=== PATIENT | male | born 1940 | race Caucasian/White ===

== ENCOUNTER → 2018-07-23 | Outpatient (CLI) | payer MEDICARE ==
--- NOTE | 2018-07-23 14:06 | KCIC ---
MR of the left shoulder Indication: Left shoulder pain, after a fall. Patient fell July 04.. Comparison: None are available. Technique: Standard multiplanar sequences are obtained. Findings: Artifact: No significant image degradation. Acromioclavicular joint: Mildly degenerative. Rotator cuff: * Supraspinatus-infraspinatus tendon: Complete full-thickness rupture, with retraction to the superior labrum. * Subscapularis tendon: Partial tear * Muscle bulk: [id number] atrophy * Subacromial subdeltoid bursa: Small effusion. Fluid: Small glenohumeral effusion. Glenohumeral cartilage: Severe chondral thinning. Volume loss and flattening of the glenoid. Subchondral cysts. Labrum: Degenerative tear of the superior labrum. Diffuse degeneration of the remaining labrum. Small intrasubstance defect of the anteroinferior labrum compatible with intrasubstance tear. Biceps tendon: Thin morphology with diffuse partial tearing. Medial subluxation at the bicipital groove. Bones: No lesion or acute fracture. Soft tissue: No acute findings.. Acute intramuscular edema within the supraspinatus and infraspinatus. Impression: 1. Large rotator cuff tear. Complete rupture of the supraspinatus and infraspinatus tendons with atrophy and edema, and severe retraction. Partial subscapularis tendon tear. 2. Primary osteoporosis. 3. Labral degeneration/tearing. Electronically signed by: Darrick Duncan MD (07/23/2018 2:02 PM) [id number]
== END | disposition home or self-care (01) ==
LOC: KCIC MRI 10:37
PROVIDERS: ATTEND Orthopaedic Surgery
DX: S46.812A Strain of other muscles, fascia and tendons at shoulder and upper arm level, left arm, initial encounter (principal); M75.102 Unspecified rotator cuff tear or rupture of left shoulder, not specified as traumatic; M81.8 Other osteoporosis without current pathological fracture; M62.512 Muscle wasting and atrophy, not elsewhere classified, left shoulder; M25.412 Effusion, left shoulder; R60.0 Localized edema; X58.XXXA Exposure to other specified factors, initial encounter; Y93.89 Activity, other specified; Y92.89 Other specified places as the place of occurrence of the external cause; Y99.8 Other external cause status
CPT/HCPCS: 73221

== ENCOUNTER → 2018-07-31 | Outpatient (CLI) | payer MEDICARE ==
[2018-07-31 11:09] LABS: BASO # 0.1 x10^3/uL (0.0-0.2); BASO % 1 % (0-3); EOS # 0.5 x10^3/uL (0.0-0.7); EOS % 8 % (0-3); HEMATOCRIT 48.3 % (39.0-53.0); HEMOGLOBIN 16.4 g/dL (13.0-17.5); LYMPH # 1.5 x10^3/uL (1.0-4.8); LYMPH % 23 % (24-48); MEAN CORPUSCULAR HEMOGLOBIN 30 pg (25-35); MEAN CORPUSCULAR HGB CONC 34 g/dL (31-37); MEAN CORPUSCULAR VOLUME 87 fL (79-100); MONO # 0.8 x10^3/uL (0.0-1.1); MONO % 13 % (0-9); NEUT # 3.7 x10^3uL (1.8-7.7); NEUT % 56 % (31-73); PLATELET COUNT 268 x10^3/uL (140-400); RED BLOOD COUNT 5.53 x10^6/uL (4.30-5.70); RED CELL DISTRIBUTION WIDTH 14.1 % (11.5-14.5); WHITE BLOOD COUNT 6.6 x10^3/uL (4.0-11.0)
[2018-07-31 11:18] LABS: PROTHROMBIN TIME PATIENT 12.9 SEC (11.7-14.0)
[2018-07-31 11:20] LABS: CALCIUM 9.1 mg/dL (8.5-10.1); GFR 72.8; POTASSIUM 4.3 mmol/L (3.5-5.1)
[2018-07-31 11:39] LABS: BILIRUBIN,URINE NEGATIVE (NEG); CLARITY,URINE CLEAR; COLOR,URINE YELLOW; NITRITE,URINE NEGATIVE (NEG); PROTEIN,URINE NEGATIVE (NEG-TRACE)
[2018-07-31 11:52] LABS: BACTERIA,URINE FEW /HPF (0-FEW); RBC,URINE OCC /HPF (0-2); SQUAMOUS EPITHELIAL CELL,UR OCC /LPF
== END | disposition home or self-care (01) ==
LOC: LAB 10:47
PROVIDERS: ATTEND Orthopaedic Surgery
DX: Z01.812 Encounter for preprocedural laboratory examination (principal); M19.012 Primary osteoarthritis, left shoulder; M75.122 Complete rotator cuff tear or rupture of left shoulder, not specified as traumatic
CPT/HCPCS: 36415; 80048; 81001; 82306; 85025; 85610; 85730; 87070; 87641